=== PATIENT | female | born 1960 | race Caucasian/White ===

== ENCOUNTER 2023-02-23 06:12 | Inpatient (IN) | payer MEDICARE, OTHER ==
[~2023-02-23] VITALS: Ht 161.3 cm; Wt 84.4 kg
[2023-02-23 06:50] LABS: BASOPHILS # (AUTO) 0.1 K/UL (0.0-0.2); BASOPHILS % (AUTO) 0.7 % (0.0-2.0); EOSINOPHILS # (AUTO) 0.2 K/uL (0.0-0.7); EOSINOPHILS % (AUTO) 1.8 % (0.0-7.0); HEMATOCRIT 39.8 % (31.2-41.9); HEMOGLOBIN 13.1 g/dL (10.9-14.3); LYMPHOCYTES # (AUTO) 2.7 K/uL (0.8-4.8); LYMPHOCYTES % (AUTO) 31.6 % (20.5-51.5); MEAN CORPUSCULAR HEMOGLOBIN 28.9 uug (24.7-32.8); MEAN CORPUSCULAR HGB CONC 33 g/dL (32.3-35.6); MEAN CORPUSCULAR VOLUME 87.8 fL (75.5-95.3); MONOCYTES # (AUTO) 0.4 K/uL (0.1-1.30); MONOCYTES % (AUTO) 4.1 % (0.0-11.0); NEUTROPHILS # (AUTO) 5.3 K/uL (1.8-8.9); NEUTROPHILS % (AUTO) 61.8 % (38.5-71.5); PLATELET COUNT (AUTO) 258 K/uL (179-408); RED BLOOD CELL COUNT(AUTO) 4.53 MIL/uL (3.63-4.92); RED CELL DISTRIBUTION WIDTH 14.9 % (12.3-17.7); WHITE BLOOD COUNT (AUTO) 8.6 K/uL (3.8-11.8)
[2023-02-23 07:05] LABS: CALCIUM 9.5 mg/dL (8.5-10.1); CREATININE 1.3 mg/dL (0.6-1.3); POTASSIUM 3.9 mmol/L (3.5-5.1)
[2023-02-23 07:09] LABS: DIFFERENTIAL COMMENT 1
[2023-02-23 07:13] LABS: *BILIRUBIN,URIN NEGATIVE (NEGATIVE); *CLARITY,URINE CLEAR (CLEAR); *COLOR,URINE YELLOW (YELLOW); *KETONES,URINE TRACE (NEGATIVE); *PROTEIN,URINE NEGATIVE (NEGATIVE); *UROBILINOGEN,URINE 0.2 E.U./dl (NORMAL); LEUKOCYTE ESTERASE ,URINE NEGATIVE (NEGATIVE); NITRITE, URINE NEGATIVE (NEGATIVE)
[2023-02-23 07:42] LABS: *BLOOD, URINE TRACE (NEGATIVE); UGLUCOSE 3+ (NEGATIVE)
[2023-02-23] MEDS ORDERED: IV NORMAL SALINE 1000 ML BAG IV ONE (07:45)
[2023-02-23] MEDS ORDERED: hydrALAZINE HCL 20 MG/1 ML VIAL IV ONE (07:45)
[2023-02-23] MEDS ORDERED: SWABABLE VALVE TRANSFER SET EA MC ONE ×2 (07:53→07:54)
[2023-02-23] MEDS ORDERED: IOHEXOL 350 100 ML INFUS..BTL ONE (07:53)
[2023-02-23] MEDS ORDERED: IV NORMAL SALINE 250 ML IV ONE (07:53)
[2023-02-23] MEDS ORDERED: hydrALAZINE HCL 20 MG/1 ML VIAL ONE ×2 (07:57→14:17)
[2023-02-23 08:30] LABS: ALANINE AMINOTRANSFERASE 31 U/L (14-59); ALBUMIN 3.4 g/dL (3.4-5.0); ALKALINE PHOSPHATASE 190 U/L (50-136); ASPARTATE AMINOTRANSFERASE 14 U/L (15-37); BILIRUBIN,DIRECT < 0.1 mg/dL (0.0-0.2); BILIRUBIN,TOTAL 0.2 mg/dL (0.2-1.0)
[2023-02-23 08:36] LABS: LACTIC ACID 2.4 mmol/L (0.4-2.0)
[2023-02-23] MEDS ORDERED: IBUP-76 PO (08:38)
[2023-02-23] MEDS ORDERED: LISI1TAB55 PO (08:38)
[2023-02-23] MEDS ORDERED: ATOR40TA PO (08:38)
[2023-02-23] MEDS ORDERED: CHOL2000 PO (08:38)
[2023-02-23] MEDS ORDERED: METO-357 PO (08:38)
[2023-02-23] MEDS ORDERED: CYCL5TAB PO (08:38)
[2023-02-23] MEDS ORDERED: MONT10TA22 PO (08:38)
[2023-02-23] MEDS ORDERED: ASPI81TA31 PO (08:38)
[2023-02-23] MEDS ORDERED: GABA-532 PO (08:38)
[2023-02-23] MEDS ORDERED: CLOP75TA15 PO (08:38)
[2023-02-23] MEDS ORDERED: MAGN400T40 PO (08:38)
[2023-02-23] MEDS ORDERED: INSULIN REGULAR, HUMAN 300 UNIT/3 ML VIAL IV ONE (09:00)
[2023-02-23 09:03] LABS: VBG BASE EXCESS 0.4 mmol/L (-3-3); VBG HCO3 22.6 mmol/L (22-27); VBG MetHb 0.1 %; VBG O2HB 89.6 %; VBG PH 7.495 (7.31-7.41); VBG PO2 52.6 mmHg (30-50); VBG TOTAL HEMOGLOBIN 14.4 G/dL (12.0-16.0)
[2023-02-23] MEDS ORDERED: INSULIN REGULAR, HUMAN 300 UNIT/3 ML VIAL ONE (09:11)
[2023-02-23 09:58] LABS: RBC,URINE 0-3 /HPF (0-3); SQUAMOUS EPITHELIAL CELL,UR MODERATE /HPF (NONE SEEN); WBC,URINE 0-3 /HPF (0-3)
[2023-02-23] MEDS ORDERED: ASPIRIN 325 MG TABLET PO ONE (12:30)
[2023-02-23] MEDS ORDERED: ASPIRIN 325 MG TABLET ONE (12:45)
[2023-02-23] MEDS ORDERED: ONDANSETRON 4 MG/2 ML VIAL ONE ×2 (12:57→15:03)
[2023-02-23] MEDS ORDERED: MORPHINE SULFATE 4 MG/1 ML DISP.SYRIN ONE (12:57)
[2023-02-23] MEDS ORDERED: ONDANSETRON 4 MG/2 ML VIAL IV ONE (13:00)
[2023-02-23] MEDS ORDERED: MORPHINE SULFATE 4 MG/1 ML DISP.SYRIN IV ONE (13:00)
[2023-02-23] MEDS ORDERED: hydrALAZINE HCL 10 MG TABLET PO ONE (14:00)
[2023-02-23] MEDS ORDERED: hydrALAZINE HCL 20 MG/1 ML VIAL IV PRN (14:30)
[2023-02-23] MEDS ORDERED: HYDROMORPHONE 1 MG/1 ML DISP.SYRIN ONE (15:03)
[2023-02-23] MEDS ORDERED: INSU200I4 SQ (15:24)
[2023-02-23] MEDS ORDERED: CYCLOBENZAPRINE HCL 10 MG TABLET PO PRN (16:15)
[2023-02-23] MEDS ORDERED: ACETAMINOPHEN 325 MG TABLET PO PRN (16:30)
[2023-02-23] MEDS ORDERED: INSULIN REGULAR, HUMAN 300 UNITS/3 ML VIAL SQ PRN (16:30)
[2023-02-23] MEDS ORDERED: MORPHINE SULFATE 2 MG/1 ML DISP.SYRIN IV PRN (16:30)
[2023-02-23] MEDS ORDERED: ONDANSETRON 4 MG/2 ML VIAL IV PRN (16:30)
[2023-02-23] MEDS ORDERED: ZOLPIDEM 5 MG TABLET PO PRN (16:30)
[2023-02-23] MEDS ORDERED: DEXTROSE 50% 50 ML DISP.SYRIN IV PRN (16:30)
[2023-02-23] MEDS ORDERED: METOPROLOL SUCCINATE XL 50 MG TAB.SR.24H PO SCH (17:00)
[2023-02-23] MEDS: BLOOD SUGAR DIAGNOSTIC 1 EACH STRIP VI SCH ×2 (17:12→21:00)
[2023-02-23 17:30] VITALS: BP 176/88; TEMP 97.5; O2SAT 96
[2023-02-23] MEDS: MAGNESIUM OXIDE 400 MG TABLET PO SCH (17:39)
[2023-02-23] MEDS: GABAPENTIN 100 MG CAPSULE PO SCH (17:39)
[2023-02-23] MEDS: INSULIN REGULAR, HUMAN 300 UNIT/3 ML VIAL SQ PRN (17:44)
[2023-02-23 20:00] VITALS: BP 114/56; TEMP 98.3; O2SAT 93
[2023-02-23] MEDS ORDERED: ENALAPRILAT DIHYDRATE 1.25 MG/1 ML VIAL IV PRN (20:15)
[2023-02-23] MEDS: MONTELUKAST SODIUM 10 MG TABLET PO SCH (22:20)
[2023-02-23] MEDS: ATORVASTATIN 40 MG TABLET PO SCH (22:20)
[2023-02-24] VITALS (7 sets, daily range): BP systolic 90–123; BP diastolic 42–68; TEMP 97.6–98.7; O2SAT 93–99
[2023-02-24] MEDS: PANTOPRAZOLE SODIUM 40 MG TABLET.DR PO SCH (06:09)
[2023-02-24] MEDS: BLOOD SUGAR DIAGNOSTIC 1 EACH STRIP VI SCH ×4 (06:38→20:55)
[2023-02-24 07:43] LABS: BASOPHILS % (AUTO) 0.4 % (0.0-2.0); EOSINOPHILS # (AUTO) 0.1 K/uL (0.0-0.7); EOSINOPHILS % (AUTO) 1.5 % (0.0-7.0); HEMOGLOBIN 11.7 g/dL (10.9-14.3); LYMPHOCYTES # (AUTO) 3.1 K/uL (0.8-4.8); MEAN CORPUSCULAR HEMOGLOBIN 28.3 uug (24.7-32.8); MEAN CORPUSCULAR HGB CONC 32 g/dL (32.3-35.6); MEAN CORPUSCULAR VOLUME 87.3 fL (75.5-95.3); MONOCYTES # (AUTO) 0.4 K/uL (0.1-1.30); MONOCYTES % (AUTO) 4.6 % (0.0-11.0); NEUTROPHILS # (AUTO) 5.6 K/uL (1.8-8.9); NEUTROPHILS % (AUTO) 60.5 % (38.5-71.5); PLATELET COUNT (AUTO) 249 K/uL (179-408); RED BLOOD CELL COUNT(AUTO) 4.12 MIL/uL (3.63-4.92); RED CELL DISTRIBUTION WIDTH 15.3 % (12.3-17.7); WHITE BLOOD COUNT (AUTO) 9.3 K/uL (3.8-11.8)
[2023-02-24 07:52] LABS: DIFFERENTIAL COMMENT 1
[2023-02-24 08:05] LABS: THYROID STIMULATING HORMONE 0.477 mIU/mL (0.358-3.740)
[2023-02-24 08:07] LABS: ALBUMIN 2.9 g/dL (3.4-5.0); BILIRUBIN,TOTAL 0.4 mg/dL (0.2-1.0); MAGNESIUM 2.1 mg/dL (1.8-2.4); PHOSPHOROUS 3.2 mg/dL (2.5-4.9); POTASSIUM 3.1 mmol/L (3.5-5.1); TOTAL PROTEIN, SERUM 6.8 g/dL (6.4-8.2)
[2023-02-24] MEDS ORDERED: Medication Not On Formulary EA (Lisinopril/HCTZ (Lisinopril-Hctz 20-12.5 Mg Tab) 1 TAB) PO SCH (09:00)
[2023-02-24] MEDS: GABAPENTIN 100 MG CAPSULE PO SCH ×3 (09:12→16:08)
[2023-02-24] MEDS: MAGNESIUM OXIDE 400 MG TABLET PO SCH ×2 (09:12→16:08)
[2023-02-24] MEDS: HYDROCHLOROTHIAZIDE 12.5 MG CAPSULE PO SCH (09:12)
[2023-02-24] MEDS: ASPIRIN 81 MG TAB.CHEW PO SCH (09:12)
[2023-02-24] MEDS: CHOLECALCIFEROL 1,000 UNIT TABLET PO SCH (09:13)
[2023-02-24] MEDS: CLOPIDOGREL 75 MG TABLET PO SCH (09:13)
[2023-02-24] MEDS: LISINOPRIL 20 MG TABLET PO SCH (09:22)
[2023-02-24] MEDS: METOPROLOL SUCCINATE XL 50 MG TAB.SR.24H PO SCH ×2 (09:22→20:49)
[2023-02-24] MEDS ORDERED: POTASSIUM CHLORIDE 20 MEQ TAB.PRT.SR PO ONE (10:30)
[2023-02-24 11:11] LABS: *AMPHETAMINE, URINE NEGATIVE (NEGATIVE); *BARBITURATE, URINE NEGATIVE (NEGATIVE); *BENZODIAZEPINE, URINE NEGATIVE (NEGATIVE); *CANNABINOID, URINE NEGATIVE (NEGATIVE); *COCCAINE, URINE NEGATIVE (NEGATIVE); *OPIATE, URINE NEGATIVE (NEGATIVE); *PHENCYCLIDINE SCREEN,URINE NEGATIVE (NEGATIVE); FENTANYL, URINE NEGATIVE (NEGATIVE)
[2023-02-24] MEDS: INSULIN REGULAR, HUMAN 300 UNIT/3 ML VIAL SQ PRN ×2 (12:07→15:53)
[2023-02-24] MEDS: MONTELUKAST SODIUM 10 MG TABLET PO SCH (20:48)
[2023-02-24] MEDS: ATORVASTATIN 40 MG TABLET PO SCH (20:48)
[2023-02-24] MEDS ORDERED: INSULIN GLARGINE,HUM 300 UNITS/3 ML CARTRIDGE SQ SCH (21:00)
[2023-02-24] MEDS ORDERED: INSULIN GLARGINE,HUM 300 UNITS/3 ML CARTRIDGE SQ ONE (21:08)
[2023-02-25 00:04] VITALS: BP 104/45; TEMP 97.8; O2SAT 98
[2023-02-25 05:52] VITALS: BP 136/80; TEMP 98.2; O2SAT 99
[2023-02-25] MEDS: PANTOPRAZOLE SODIUM 40 MG TABLET.DR PO SCH (06:06)
[2023-02-25] MEDS: BLOOD SUGAR DIAGNOSTIC 1 EACH STRIP VI SCH ×2 (06:31→11:51)
[2023-02-25 07:40] VITALS: BP 117/55; TEMP 97.9; O2SAT 99
[2023-02-25] MEDS: ASPIRIN 81 MG TAB.CHEW PO SCH (09:05)
[2023-02-25] MEDS: CHOLECALCIFEROL 1,000 UNIT TABLET PO SCH (09:05)
[2023-02-25] MEDS: GABAPENTIN 100 MG CAPSULE PO SCH ×2 (09:07→13:54)
[2023-02-25 09:08] VITALS: BP 117/55
[2023-02-25] MEDS: LISINOPRIL 20 MG TABLET PO SCH (09:08)
[2023-02-25] MEDS: MAGNESIUM OXIDE 400 MG TABLET PO SCH (09:08)
[2023-02-25] MEDS: METOPROLOL SUCCINATE XL 50 MG TAB.SR.24H PO SCH (09:08)
[2023-02-25] MEDS: HYDROCHLOROTHIAZIDE 12.5 MG CAPSULE PO SCH (09:08)
[2023-02-25] MEDS: CLOPIDOGREL 75 MG TABLET PO SCH (09:08)
[2023-02-25] MEDS: INSULIN REGULAR, HUMAN 300 UNIT/3 ML VIAL SQ PRN (13:03)
[2023-02-25] MEDS ORDERED: INSU200I4 SQ (15:06)
[2023-02-25] MEDS ORDERED: METO-357 PO (15:06)
== END 2023-02-25 16:15 | disposition home or self-care (01) | DRG 639 ==
LOC: ER 06:18 → TRANSITION 14:16 → TELE3 16:37
PROVIDERS: ADMIT Internal Medicine; ATTEND Internal Medicine
DX: E11.65 Type 2 diabetes mellitus with hyperglycemia (principal); I65.23 Occlusion and stenosis of bilateral carotid arteries; R51.9 Headache, unspecified; I10 Essential (primary) hypertension; E11.51 Type 2 diabetes mellitus with diabetic peripheral angiopathy without gangrene; G62.9 Polyneuropathy, unspecified; E78.5 Hyperlipidemia, unspecified; E66.9 Obesity, unspecified; I16.0 Hypertensive urgency; Z68.32 Body mass index [BMI] 32.0-32.9, adult; Z91.81 History of falling; R26.81 Unsteadiness on feet; Z86.73 Personal history of transient ischemic attack (TIA), and cerebral infarction without residual deficits; M19.90 Unspecified osteoarthritis, unspecified site; Z79.82 Long term (current) use of aspirin; Z82.3 Family history of stroke; Z82.49 Family history of ischemic heart disease and other diseases of the circulatory system; Z90.49 Acquired absence of other specified parts of digestive tract; Z88.8 Allergy status to other drugs, medicaments and biological substances
CPT/HCPCS: 36415; 36600; 70450; 70496; 70551; 82803; 83605; 83735; 84100; 84443; 84484; 85025; 85730; 87040; 93005; 93307; 93880; G0378; J0360; J1170; J1815; J2270; J2405; J7040; Q9967